=== PATIENT | male | born 1990 | race Caucasian/White ===

== ENCOUNTER 2017-05-12 21:50 | Emergency (ER) | payer OTHER ==
[2017-05-12] MEDS ORDERED: Pepcid 20 MG VIAL IV SCH (22:00)
[2017-05-12] MEDS ORDERED: Pepcid 20 MG VIAL IV ONE (22:06)
--- NOTE | 2017-05-12 22:12 | ERPHSYRPT ---
- History of Present Illness Time Seen by Provider: 05/12/17 22:07 Source: patient, EMS Patient Subjective Stated Complaint: PT STATES HE WAS TAKING A SHOWER THIS EVENING APPROX 2100 AND USED A NEW SHAMPOO WHEN HE HAD BURNING AND ITCHING ALL OVER HIS BODY. STATES HE BEGAN TO FEEL SICK IMMEDIATELY AND COULD NOT STAND. EMS PERSONNEL REPORTS WHEN THEY ARRIVED TO THE SCENE PT WAS SHORT OF AIR, HAD HIVES TO THE ENTIRE ENTIRE BODY, AND HAD DIFFICULTY STANDING. MEDIC REPORTS SLIGHT WHEEZIND HEARD AT THAT TIME. Triage Nursing Assessment: PT IS AOX3, PUPILS PERRL, RESPS ARE EASY AND NONLABORED, LUNG SOUNDS ARE CLEAR AND EQUAL BILATERALLY. RADIAL PULSES ARE STRONG AND EQUAL. SKIN IS RED AND WARM TO TOUCH. MINIMAL SWELLING NOTED TO THE FACE, HANDS, AND FEET. PT IS AFEBRILE. Physician History: [age]-year-old male was taking a bath with new kind of shampoo and suddenly developed red skin rash all over the body with hot sensation. He called ambulance, and in route to the emergency room. He was given Solu-Medrol 125 IV as well as Benadryl 50 mg IV. When he was in ER. He is asked was improving, though he still was feeling some hot sensation. He denies any shortness of breathing or choking sensation or trouble breathing. Timing/Duration: today Associated Symptoms: rash Allergies/Adverse Reactions: No Known Drug Allergies Allergy (Unverified 05/12/17 22:05) Hx Tetanus, Diphtheria Vaccination/Date Given: Yes Hx Influenza Vaccination/Date Given: No Hx Pneumococcal Vaccination/Date Given: No Immunizations Up to Date: Yes - Review of Systems Constitutional: No Symptoms Eyes: No Symptoms Ears, Nose, & Throat: No Symptoms Respiratory: No Symptoms Cardiac: No Symptoms Abdominal/Gastrointestinal: No Symptoms Skin: Rash - Past Medical History Pertinent Past Medical History: No - Past Surgical History Past Surgical History: No - Social History Smoking Status: Current every day smoker Drug Use: none Patient Lives Alone: No - Nursing Vital Signs Nursing Vital Signs: Initial Vital Signs Temperature 98.1 F 05/12/17 21:52 Pulse Rate 77 05/12/17 21:52 Respiratory Rate 20 05/12/17 21:52 Blood Pressure 148/78 05/12/17 21:52 O2 Sat by Pulse Oximetry 95 05/12/17 21:52 Pain Scale Pain Intensity 0 - Physical Exam General Appearance: no apparent distress Eye Exam: PERRL/EOMI Ears, Nose, Throat Exam: normal ENT inspection Neck Exam: normal inspection Respiratory Exam: normal breath sounds Cardiovascular Exam: regular rate/rhythm Skin Exam: rash SpO2: 95 Oxygen Delivery: Room Air - Course Nursing assessment & vital signs reviewed: Yes Ordered Tests: Medication Summary Generic Name Dose Route Start Last Admin Trade Name Triston PRN Reason Stop Dose Admin Famotidine 40 mg 05/12/17 22:00 Pepcid 20 Mg Vial IV 06/11/17 21:59 HS MED - Progress Progress: improved Counseled pt/family regarding: diagnosis, need for follow-up - Departure Time of Disposition: 22:10 Departure Disposition: Home Clinical Impression: Allergic reaction, urticaria Condition: Stable Critical Care Time: No Instructions: Adverse Drug Reaction -- Allergic Additional Instructions: ALLERGIC REACTION 1. There are several different reasons for the cause of an allergic reaction. If you are aware of a trigger, continue to avoid the problem. 2. If at any time you experience any of these signs or symptoms, you should seek medical attention immediately: A. Sudden onset of rash B. Wheezing C. Shortness of breath D. Thick tongue E. Dizziness 3. If you experience an allergic reaction and are treated in the emergency department, you should follow up with your family physician in order to determine how you will need to handle your allergy. Prescriptions: Methylprednisolone Packet [Medrol Dosepack] 4 mg PO UD #30 packet Famotidine 20 mg [Pepcid 20 MG] 20 mg PO BID #10 tablet
[2017-05-12] MEDS ORDERED: Sodium Chloride 0.9% 1000 ML 1,000 ML ONE (22:13)
[2017-05-12 23:05] VITALS: BP 120/59; PULSE 84; O2SAT 99
[2017-05-13] MEDS ORDERED: Sodium Chloride 0.9% 1000 ML 1,000 ML IV STA (00:04)
== END 2017-05-12 23:04 | disposition home or self-care (01) ==
LOC: ED 21:50
DX: T78.40XA Allergy, unspecified, initial encounter (principal); L50.9 Urticaria, unspecified
CPT/HCPCS: 96360; 96361; 96374; 99284